=== PATIENT | male | born 1995 | race Caucasian/White ===

== ENCOUNTER 2019-08-16 19:45 | Emergency (ER) | payer BC ==
[~2019-08-16] VITALS: Ht 167.6 cm; Wt 79.0 kg
[2019-08-16 19:54] VITALS: Ht 167.6 cm; Wt 79.0 kg
[2019-08-16 22:14] VITALS: BP 138/99
== END 2019-08-16 22:14 | disposition home or self-care (01) ==
LOC: ED 19:45
DX: R51 Headache (principal); R11.0 Nausea; R42 Dizziness and giddiness
CPT/HCPCS: J1200; J2765